=== PATIENT | female | born 1995 | race Caucasian/White ===

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

== ENCOUNTER 2017-11-04 00:33 | Emergency (ER) | payer BC ==
[2017-11-04 01:36] LABS: ABS Basophils 0.1 10^3/ul (0-0.2); ABS Eosinophils 0.1 10^3/ul (0-0.6); ABS Lymphocytes 3.1 10^3/ul (1.0-4.8); ABS Neutrophils 6.3 10^3/ul (1.5-7.7); ABS Nucleated RBC 0 10^3/ul; Eosinophil % 1.2 % (0-6); Hematocrit 36 % (35-47); Hemoglobin 12.1 g/dl (12.0-16.0); Lymphocyte % 29.2 % (25-47); Mean Corpuscular HGB Conc 34 g/dl (31-36); Mean Corpuscular Hemoglobin 26 pg (27-31); Mean Corpuscular Volume 77 fL (80-97); Mean Platelet Volume 7 um3 (7.4-10.4); Nucleated Red Blood Cells % 0.1; Platelet Count 353 10^3/ul (150-450); Red Blood Count 4.69 10^6/ul (4.0-5.4); Red Cell Distribution Width 16 % (10.5-15); White Blood Count 10.5 10^3/ul (3.5-10.8)
[2017-11-04 01:52] LABS: EGFR Non-African American 108.5 (>60)
--- NOTE | 2017-11-04 06:06 | ED ---
Christel Chan Gabriel, scribed for Jeff Becker MD on 11/04/17 at 0520 . Abdominal Pain/Female - HPI Summary HPI Summary: This patient is a 22 year old F presenting to [facility] with a chief complaint of ABD pain that began a month ago but was worse since last night. The patient rates the pain 7/10 in severity. Patient reports blood on wiping and black kadeem in her stool. When she was 14 she had ABD pain due ovarian cysts in February of 2017 the pain was getting worse. Laparoscopic surgery and nothing significant was found. - History of Current Complaint Chief Complaint: EDAbdPain Stated Complaint: ABD PAIN, VAGINAL BLEEDING Time Seen by Provider: 11/04/17 05:11 Hx Obtained From: Patient Onset/Duration: Lasting Weeks - 4, Still Present Timing: Constant Severity Initially: Mild Severity Currently: Severe Pain Intensity: 10 Pain Scale Used: 0-10 Numeric Location: Diffuse Associated Signs and Symptoms: Positive: Blood in Stool, Other: - black kadeem in her stool Allergies/Adverse Reactions: Allergies Allergy/AdvReac Type Severity Reaction Status Date / Time cefpodoxime [From Vantin] Allergy Anaphylatic Verified 11/04/17 00:44 Shock PMH/Surg Hx/FS Hx/Imm Hx Endocrine/Hematology History: Denies: Hx Blood Disorders Respiratory History: Denies: Hx Chronic Obstructive Pulmonary Disease (COPD) GI History: Reports: Hx Gastroesophageal Reflux Disease Sensory History: Denies: Hx Cataracts, Hx Contacts or Glasses Psychiatric History: Reports: Hx Anxiety Infectious Disease History: No Infectious Disease History: Denies: Traveled Outside the [place] in Last 30 Days - Family History Known Family History: Negative: Renal Disease, Seizure Disorder - Social History Occupation: Student Lives: Dormitory/Roommates Alcohol Use: Rare Substance Use Type: Reports: None Smoking Status (MU): Never Smoked Tobacco Review of Systems Negative: Fever Positive: Abdominal Pain, Other - blood on wiping and black kadeem in her All Other Systems Reviewed And Are Negative: Yes Physical Exam - Summary Physical Exam Summary: VITAL SIGNS: Reviewed. GENERAL: Patient is a well-developed and nourished female who is lying comfortable in the stretcher. Patient is not in any acute respiratory distress. HEAD AND FACE: No signs of trauma. No ecchymosis, hematomas or skull depressions. No sinus tenderness. EYES: PERRLA, EOMI x 2, No injected conjunctiva, no nystagmus. EARS: Hearing grossly intact. Ear canals and tympanic membranes are within normal limits. MOUTH: Oropharynx within normal limits. NECK: Supple, trachea is midline, no adenopathy, no JVD, no carotid bruit, no c- spine tenderness, neck with full ROM. CHEST: Symmetric, no tenderness at palpation LUNGS: Clear to auscultation bilaterally. No wheezing or crackles. CVS: Regular rate and rhythm, S1 and S2 present, no murmurs or gallops appreciated. ABDOMEN: Soft, non-tender. No signs of distention. No rebound no guarding, and no masses palpated. Bowel sounds are normal. EXTREMITIES: FROM in all major joints, no edema, no cyanosis or clubbing. NEURO: Alert and oriented x 3. No acute neurological deficits. Speech is normal and follows commands. SKIN: Dry and warm Rectal: normal, no masses, empty rectum Triage Information Reviewed: Yes Vital Signs On Initial Exam: Initial Vitals Temp Pulse Resp BP Pulse Ox 97.3 F 89 16 123/73 98 11/04/17 00:40 11/04/17 00:40 11/04/17 00:40 11/04/17 00:40 11/04/17 00:40 Vital Signs Reviewed: Yes Diagnostics - Vital Signs Vital Signs Temp Pulse Resp BP Pulse Ox 11/04/17 02:40 97.9 F 79 16 129/80 99 11/04/17 00:40 97.3 F 89 16 123/73 98 - Laboratory Lab Results: Lab Results 11/04/17 11/04/17 Range/Units 01:22 01:22 WBC 10.5 (3.5-10.8) 10^3/ul RBC 4.69 (4.0-5.4) 10^6/ul Hgb 12.1 (12.0-16.0) g/dl Hct 36 (35-47) % MCV 77 L (80-97) fL MCH 26 L (27-31) pg MCHC 34 (31-36) g/dl RDW 16 H (10.5-15) % Plt Count 353 (150-450) 10^3/ul MPV 7 L (7.4-10.4) um3 Neut % (Auto) 59.3 (38-83) % Lymph % (Auto) 29.2 (25-47) % [place] % (Auto) 9.8 H (0-7) % Eos % (Auto) 1.2 (0-6) % Baso % (Auto) 0.5 (0-2) % Absolute Neuts (auto) 6.3 (1.5-7.7) 10^3/ul Absolute Lymphs (auto) 3.1 (1.0-4.8) 10^3/ul Absolute Monos (auto) 1.0 H (0-0.8) 10^3/ul Absolute Eos (auto) 0.1 (0-0.6) 10^3/ul Absolute Basos (auto) 0.1 (0-0.2) 10^3/ul Absolute Nucleated RBC 0 10^3/ul Nucleated RBC % 0.1 Sodium 135 (133-145) mmol/L Potassium 3.9 (3.5-5.0) mmol/L Chloride 103 (101-111) mmol/L Carbon Dioxide 25 (22-32) mmol/L Anion Gap 7 (2-11) mmol/L BUN 10 (6-24) mg/dL Creatinine 0.69 (0.51-0.95) mg/dL Est GFR ( Amer) 139.5 (>60) Est GFR (Non-Af Amer) 108.5 (>60) BUN/Creatinine Ratio 14.5 (8-20) Glucose 99 (70-100) mg/dL Calcium 9.5 (8.6-10.3) mg/dL Total Bilirubin 0.20 (0.2-1.0) mg/dL AST 18 (13-39) U/L ALT 11 (7-52) U/L Alkaline Phosphatase 56 (34-104) U/L C-Reactive Protein 5.73 H (< 5.00) mg/L Total Protein 7.5 (6.4-8.9) g/dL Albumin 4.2 (3.2-5.2) g/dL Globulin 3.3 (2-4) g/dL Albumin/Globulin Ratio 1.3 (1-3) Lipase 42 (11.0-82.0) U/L Result Diagrams: 11/04/17 01:22 11/04/17 01:22 Lab Statement: Any lab studies that have been ordered have been reviewed, and results considered in the medical decision making process. Abdominal Pain Fem Course/Dx - Course Course Of Treatment: This patient is a 22 year old F presenting to [facility] with a chief complaint of ABD pain that began a month ago but was worse since last night. The patient rates the pain 7/10 in severity. Patient reports blood on wiping and black kadeem in her stool. When she was 14 she had ABD pain due ovarian cysts in February of 2017 the pain was getting worse. Laparoscopic surgery and nothing significant was found. Pt denied pain medication. Test results with no significant abnormalities. Dx ABD pain. Patient will be discharged and follow up from GI. The patient is agreeable with this plan. - Diagnoses Provider Diagnoses: Abdominal pain Discharge - Discharge Plan Condition: Stable Disposition: HOME Patient Education Materials: Acute Abdominal Pain (ED) Referrals: Jadon Dominguez MD [Medical Doctor] - 4 Days Melly Anderson MD [Primary Care Provider] - Additional Instructions: RETURN TO EMERGENCY DEPARTMENT FOR ANY NEW OR WORSENING SYMPTOMS The documentation as recorded by the Christel cormier Gabriel accurately reflects the service I personally performed and the decisions made by , Jeff Becker MD.
[2017-11-04 06:37] VITALS: BP 113/67
== END 2017-11-04 06:46 | disposition home or self-care (01) ==
LOC: ED 00:33
DX: R10.9 Unspecified abdominal pain (principal); K92.1 Melena
CPT/HCPCS: 36415; 80053; 83690; 85025; 86140; 99282

== ENCOUNTER 2017-11-04 08:04 | Emergency (ER) | payer BC ==
[2017-11-04] MEDS ORDERED: Ketorolac INJ* 30 MG/ML 1 ML VIAL IM ONE (08:29)
[2017-11-04 09:52] VITALS: BP 109/67
[2017-11-04 10:21] LABS: Urine Appearance Clear; Urine Blood 1+ (Negative); Urine Color Yellow; Urine Ketones Negative (Negative); Urine Protein Negative (Negative); Urine Specific Gravity 1.008 (1.010-1.030); Urine Urobilinogen Negative (Negative)
--- NOTE | 2017-11-05 00:24 | ED ---
Nemesio Chan Stephanie, scribed for Tonya Mcgrath MD on 11/04/17 at 0831 . GI/ HPI - HPI Summary HPI Summary: The pt is a 22 y/o F presenting to the ED with c/o rectal bleeding that began at 22:00 yesterday. Symptoms include LLQ abd pain, nausea and dark blood in stool. The pt states her pain is rated as a 6 to a 7 in severity. She was a pt in the ED yesterday. The pt denies receiving pain medications last night while in the ER. Per the pts mother, the pt has been dealing with abd pain for years. She has had laparoscopic surgery in September 2017 in an attempt to diagnose the pt with endometriosis however, no endometriosis was found. The pt states she had her most recent BM at 22:30 yesterday. She states the stool was mostly brown but had dark black spots. She states when she wiped, she saw bright red blood on the toilet paper. LKMP in May 2017 but this is not unusual because OCP's are suppressing her menses. Pt is on continuous control. The pt states a hx of ovarian cysts. Per the pts mother, the pts pain has usually been located at the mid-abdomen and RLQ however, today the pain is at the LLQ which is unusual for the pt. No fever, no vomiting, no urinary symptoms. Mother has irritable bowel syndrome. - History of Current Complaint Time Seen by Provider: 11/04/17 08:26 Stated Complaint: ABD PAIN Hx Obtained From: Patient, Family/Brake Adjuster - Mother Onset/Duration: Started Days Ago - 1, Still Present Timing: Constant, Intermittent - Pain has been intermittent for the past few years, Lasting Hours Severity: Severe Current Severity: Moderate Pain Intensity: 7 Location of Pain: LLQ Pain Characteristics: Dull Pain Radiates to: Back Associated Signs and Symptoms: Positive: Nausea, Rectal Pain, Bright Red Blood w /Stool, Blood w/Stool, Abdominal Pain Additional Signs & Symptoms: Positive: Oral Contraceptives Compliant, First Day of Last Menstral Period - May 2017 Aggravating Factor(s): Nothing Alleviating Factor(s): Nothing - Allergy/Home Medications Allergies/Adverse Reactions: Allergies Allergy/AdvReac Type Severity Reaction Status Date / Time cefpodoxime [From Vantin] Allergy Anaphylatic Verified 11/04/17 08:16 Shock Home Medications: Home Medications Citalopram Hydrobromide [Citalopram HBr] 1.5 tab PO DAILY 11/04/17 [History Confirmed 11/04/17] Lansoprazole [Goodsense Lansoprazole] 15 mg PO BID 11/04/17 [History Confirmed 11/04/17] Norethindrone-Ethinyl Estrad [Nortrel 1-35 28 Tablet] 1 tab PO DAILY 11/04/17 [ History Confirmed 11/04/17] Sertraline* [Zoloft*] 1 tab PO DAILY 11/04/17 [History Confirmed 11/04/17] PMH/Surg Hx/FS Hx/Imm Hx Previously Healthy: No Endocrine/Hematology History: Reports: Other Endocrine/Hematological Disorders - poss endometriosis, although not on laparoscopy Sep 2017 Denies: Hx Blood Disorders Respiratory History: Denies: Hx Chronic Obstructive Pulmonary Disease (COPD) GI History: Reports: Hx Gastroesophageal Reflux Disease Sensory History: Denies: Hx Cataracts, Hx Contacts or Glasses Opthamlomology History: Denies: Hx Cataracts, Hx Contacts or Glasses Psychiatric History: Reports: Hx Anxiety - Surgical History Surgery Procedure, Year, and Place: Laproscopic surgery 09/2017 Infectious Disease History: No Infectious Disease History: Denies: Traveled Outside the [place] in Last 30 Days - Family History Known Family History: Positive: Other - IBS Negative: Renal Disease, Seizure Disorder - Social History Occupation: Student - [employer] major Lives: Dormitory/Roommates Alcohol Use: Rare Substance Use Type: Reports: None Smoking Status (MU): Never Smoked Tobacco Review of Systems Negative: Fever Positive: Abdominal Pain, Nausea Positive: no symptoms reported, other - dark red blood in stool, bright blood on toilet paper, rectal pain Skin: Negative Neurological: Negative Psychological: Normal All Other Systems Reviewed And Are Negative: Yes Physical Exam - Summary Physical Exam Summary: Appearance: Ill-appearing, moderate pain distress, Well-nourished Skin: Warm, color reflects adequate perfusion Head: Normal Head/Face inspection Eyes: Conjunctiva clear ENT: Normal inspection Neck: Supple, no nodes, no JVD. Respiratory: Lungs clear, Normal breath sounds, no respiratory distress Cardio: RRR, No murmur, pulses normal, brisk capillary refill Abdomen: Minimal L periumbilical and LLQ tenderness, no guarding, no rebound Bowel sounds: present Rectal exam with mother present as witness: no fissures or fistulas, no hemorrhoids, nontender exam, only mucous in the rectal vault, guaiac neg when tested. No masses. Musculoskeletal: Strength Intact/ ROM intact. No calf tenderness. No edema. Neuro: Alert, muscle tone normal, facial symmetry, speech normal, sensory/motor intact Psychological: Normal Triage Information Reviewed: Yes Vital Signs On Initial Exam: Initial Vitals Temp Pulse Resp BP Pulse Ox 98.9 F 81 14 127/77 99 11/04/17 08:11 11/04/17 08:11 11/04/17 08:11 11/04/17 08:11 11/04/17 08:11 Vital Signs Reviewed: Yes Diagnostics - Vital Signs Vital Signs Temp Pulse Resp BP Pulse Ox 11/04/17 08:11 98.9 F 81 14 127/77 99 - Laboratory Lab Results: Lab Results 11/04/17 Range/Units 10:08 Urine Color Yellow Urine Appearance Clear Urine pH 6.0 (5-9) Ur Specific Scalf 1.008 L (1.010-1.030) Urine Protein Negative (Negative) Urine Ketones Negative (Negative) Urine Blood 1+ A (Negative) Urine Nitrate Negative (Negative) Urine Bilirubin Negative (Negative) Urine Urobilinogen Negative (Negative) Ur Leukocyte Esterase Trace A (Negative) Urine WBC (Auto) Trace(0-5/hpf) (Absent) Urine RBC (Auto) Trace(0-2/hpf) (Absent) Ur Squamous Epith Cells Present A (Absent) Urine Bacteria 1+ A (Absent) Urine Glucose Negative (Negative) Lab Statement: Any lab studies that have been ordered have been reviewed, and results considered in the medical decision making process. Re-Evaluation - Re-Evaluation First Eval Re-Evaluation Time: 11:00 Change: Improved Comment: reports pain relief with ketorolac. Stool is guaiac neg. Discussed results and diff dx. Decided no imaging needed at this time as pain is controlled and pain is not as low as ovarian cyst pain would be, so doubt associated ovarian pathology. GIGU Course/Dx - Course Course Of Treatment: The pt was given ketorolac 30 mg injectable at 08:36. Her pain has resolved since receiving ketorolac. Stool is guaiac neg. Urine shows possible UTI, but pt has no urinary symptoms, so will not treat at this time, will await culture. No imaging done, decided with shared decision making with pt and mother and myself. Pt will be given Rx for Levsin (hyoscyamine 0.125mg) that she may try sublingual for abd pain that may be due to spasm. Pt is given Dr. Dominguez's name for GI follow up, as soon as the office can accommodate her. Pt will continue her omeprazole. - Diagnoses Differential Diagnoses - Female: Bowel Obstruction, Endometriosis, Gastroenteritis (Viral), Gastroenteritis (Bacterial), Hemorrhoids, Irritable Bowel Syndrome, Peptic Ulcer Disease, Rectal Fissure, Ulcerative Colitis/Crohn' s Disease Provider Diagnoses: Abdominal pain, Bright red blood per rectum Discharge - Discharge Plan Condition: Stable Disposition: HOME Prescriptions: Hyoscyamine Sulfate [Levsin-Sl] 0.125 mg SL Q4H PRN #12 tab.subl PRN Reason: cramping Patient Education Materials: Abdominal Pain (ED) Forms: *School Release Referrals: Jadon Dominguez MD [Medical Doctor] - As Soon As Possible Justin BERMUDEZ,Melly Santana [Primary Care Provider] - 3 Days Additional Instructions: You were given ketorolac 30 mg injectable at 08:36 with good relief of your pain. Dr. Mcgrath is trying a prescription of hyoscyamine 0.125mg sublingual for your abd pain. Please call Dr. Dominguez's office for a GI referral as soon as possible. Follow up with [facility] as well as needed. RETURN TO THE ER FOR ANY NEW OR WORSENING SYMPTOMS The documentation as recorded by the Nemesio cormier Stephanie accurately reflects the service I personally performed and the decisions made by me, Tonya Mcgrath MD.
== END 2017-11-04 11:13 | disposition home or self-care (01) ==
LOC: ED 08:04
DX: R10.32 Left lower quadrant pain (principal); K62.5 Hemorrhage of anus and rectum; R11.0 Nausea; K62.89 Other specified diseases of anus and rectum
CPT/HCPCS: 81003; 81015; 82272; 87086; 99282; J1885

== ENCOUNTER 2017-11-05 10:41 | Observation (INO) | payer BC ==
[2017-11-05] MEDS ORDERED: Ketorolac INJ* 30 MG/ML 1 ML VIAL IV ONE (11:26)
[2017-11-05] MEDS ORDERED: Pantoprazole IV* 40 MG IV ONE (11:26)
[2017-11-05] MEDS ORDERED: Ondansetron INJ* 2 MG/ML VIAL IV ONE ×3 (11:26→15:14)
[2017-11-05] MEDS ORDERED: NS 0.9% 1000 ML* 1,000 ML BOLUS SCH (11:45)
[2017-11-05 11:46] LABS: ABS Basophils 0.1 10^3/ul (0-0.2); ABS Eosinophils 0.1 10^3/ul (0-0.6); ABS Lymphocytes 1.1 10^3/ul (1.0-4.8); ABS Monocytes 0.8 10^3/ul (0-0.8); ABS Neutrophils 19.2 10^3/ul (1.5-7.7); ABS Nucleated RBC 0 10^3/ul; Eosinophil % 0.4 % (0-6); Hematocrit 38 % (35-47); Hemoglobin 12.6 g/dl (12.0-16.0); Lymphocyte % 5.2 % (25-47); Mean Corpuscular HGB Conc 33 g/dl (31-36); Mean Corpuscular Hemoglobin 26 pg (27-31); Mean Corpuscular Volume 78 fL (80-97); Mean Platelet Volume 8 um3 (7.4-10.4); Nucleated Red Blood Cells % 0; Platelet Count 351 10^3/ul (150-450); Red Blood Count 4.94 10^6/ul (4.0-5.4); Red Cell Distribution Width 17 % (10.5-15); White Blood Count 21.3 10^3/ul (3.5-10.8)
[2017-11-05 11:54] LABS: INR 0.82 (0.77-1.02)
[2017-11-05 12:05] LABS: EGFR Non-African American 98.5 (>60)
[2017-11-05] MEDS ORDERED: Potassium Chlor TAB* 20 MEQ TAB.ER PO ONE (12:19)
--- NOTE | 2017-11-05 12:47 | RAD ---
Indication: Right upper quadrant pain. Real-time sonography of the right upper quadrant was performed. The liver measures 16.5 cm in length with no focal lesions or intrahepatic ductal location. The gallbladder demonstrates no calcified gallstones. No pericholecystic fluid or wall thickening is identified. The common duct measures up to 3 mm. Right kidney measures 11.7 x 3.7 x 5.0 cm with no evidence of stenosis. The pancreas head, neck and proximal body demonstrates no mass or pancreatic duct dilatation. Aorta and inferior cava are unremarkable. IMPRESSION: No evidence of cholelithiasis or biliary duct dilatation is present.
[2017-11-05] MEDS ORDERED: Hyoscyamine TAB* 0.125 MG PO PRN (12:51)
[2017-11-05] MEDS ORDERED: Ondansetron INJ* 2 MG/ML VIAL IV PRN (12:57)
[2017-11-05] MEDS ORDERED: Acetaminophen TAB* 325 MG PO PRN (13:36)
[2017-11-05] MEDS: Citalopram TAB* 10 MG PO SCH (14:55)
[2017-11-05] MEDS: Sertraline* 100 MG TAB PO SCH (14:55)
[2017-11-05] MEDS ORDERED: oxyCODONE TAB* 5 MG TAB PO PRN (15:09)
[2017-11-05] MEDS ORDERED: Morphine INJ* 2 MG/ML 1 ML CARPUJECT IV PRN (15:14)
[2017-11-05] MEDS ORDERED: Morphine INJ* 2 MG/ML 1 ML CARPUJECT ONE (15:17)
[2017-11-05] MEDS ORDERED: Ketorolac INJ* 30 MG/ML 1 ML VIAL IV PUSH PRN (16:00)
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
[2017-11-05] MEDS ORDERED: PROCHLORPERAZINE INJ 5 MG/ML 2 ML VIAL ONE (16:27)
[2017-11-05] MEDS ORDERED: PROCHLORPERAZINE INJ 5 MG/ML 2 ML VIAL IV PRN (16:28)
[2017-11-05] MEDS ORDERED: HYDROmorphone INJ* 2 MG/ML CARPUJECT SYRINGE IV SLOW PU PRN (16:53)
[2017-11-05] MEDS: NORETHINDRONE ETHINYL ESTRAD PO SCH ×2 (17:07→19:37)
--- NOTE | 2017-11-05 17:26 | RAD ---
Indication: Abdominal pain, nausea, vomiting. Elevated white blood cell count. Comparison: No relevant prior exams available on the [facility] [place]. Technique: Ultrasound of the right lower quadrant. REPORT AND IMPRESSION: Nondiagnostic exam due to nonvisualization of the appendix. No visualized RIGHT lower quadrant free fluid or lymphadenopathy. Correlate with clinical assessment and consider CT for further evaluation if deemed appropriate.
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
[2017-11-05] MEDS ORDERED: Metoclopramide IV* 5 MG/ML 2 ML VIAL IV PRN (18:53)
[2017-11-05] MEDS ORDERED: NS 0.9% 1000 ML* 1,000 ML IV SCH (19:00)
--- NOTE | 2017-11-05 19:07 | RAD ---
Indication: Assess for ovarian torsion or cyst. Comparison: August 17, 2011 Technique: Transvaginal pelvic ultrasound. Report: Physiologic small volume of free fluid in the cul-de-sac. Unremarkable 7.3 x 3.1 x 4.6 cm anteverted uterus with 4.2 mm endometrium. 2.2 x 1.4 x 1.3 cm RIGHT ovary with documented vascular flow is remarkable for small follicles only. 2.4 x 2.2 x 1.2 cm LEFT ovary with documented vascular flow is remarkable for small follicles only. No visualized extra ovarian adnexal region lesions evident. IMPRESSION: Negative pelvic ultrasound.
--- NOTE | 2017-11-05 20:29 | ED ---
Gloria Chan Nilda, scribed for Tonya Mcgrath MD on 11/05/17 at 1116 . GI/ HPI - HPI Summary HPI Summary: This patient is a 22 year old F BIBA with a chief complaint of waking up today with constant abd pain (mildly epigastric but mostly RUQ) with N/V/D. She denies presence of bright red blood in emesis and stool, but notes V/D were very dark brown. The patient rates the sharp RUQ pain 8/10 in severity. Symptoms aggravated by palpation and alleviated by nothing. Patient reports diaphoresis while vomiting, but denies abnormal vaginal discharge, dysuria, abnormal urinary symptoms, CP, and SOB. Yesterday (11/04/17), pt was seen at [facility] and [facility] (twice) for diffuse abd pain and diarrhea with blood. She was treated with IV Toradol in ED, which resolved her pain. She did not receive CT or ultrasound imaging. She was prescribed hyoscyamine for possible irritable bowel, which she filled, but did not try yet. She states the pain is different today since she is now experiencing R- sided abd pain with vomiting. She states her last meal was yesterday's lunch which was soup and a sandwich. She states she slept almost all day and all night yesterday after being discharged from the ED. The patient notes she takes OTC ibuprofen occasionally for headache and cramping. Daily medications include Lansoprazole 10 mg, Citalopram 10 mg, Nortrel (continuous bcp) 1 tablet, Sertaline HCL 100mg, and Hyoscyamine 0.125 mg ODT. LNMP was in May since menstrual cycle is being intentionally suppressed due to pts Hx of ovarian cysts and possible endometriosis. PSHx includes upper endoscopy performed by Dr. Kim for suspicion of Crohns Disease, which was unremarkable. On 09/10/17 pt states she had laporoscopic surgery performed by Dr. Taniya Shepherd at [facility], which was positive for pelvic adhesions but negative for abnormal appendix, abnormal gallbladder, and endometriosis. - History of Current Complaint Chief Complaint: EDAbdPain Stated Complaint: N/V Hx Obtained From: Patient, Medical Records, Other: - I was pt's provider yesterday for her second ED visit. Onset/Duration: Started Days Ago - 1 day, Atraumatic, Still Present Timing: Constant Severity: Severe Current Severity: Severe Pain Intensity: 8 Location of Pain: RUQ, RLQ, Epigastric Pain Characteristics: Sharp - RUQ Associated Signs and Symptoms: Positive: Nausea, Vomiting - brown, this am, Blood w/Stool - yesterday "black spots" and BRB with wiping, Diarrhea - started this am, Diaphoresis - after vomiting this am, Abdominal Pain, Other: - N/V/D, diaphoresis while vomiting; negative abnormal vaginal discharge, dysuria, abnormal urinary symptoms, CP, SOB. Negative: Hematemesis, Rectal Pain, External Hemorrhoid, Constipation, External Hemorrhoids, Fever, Hematuria, Dysuria, Chills, UTI Symptoms Additional Signs & Symptoms: Positive: Oral Contraceptives Compliant - continuous for menstrual suppression. Negative: Vaginal Bleeding, Vaginal Discharge Aggravating Factor(s): Palpation Alleviating Factor(s): Nothing - Allergy/Home Medications Allergies/Adverse Reactions: Allergies Allergy/AdvReac Type Severity Reaction Status Date / Time cefpodoxime [From Vantin] Allergy Anaphylatic Verified 11/04/17 08:16 Shock Home Medications: Home Medications Citalopram TAB* [CeleXA TAB*] 15 mg PO DAILY 11/05/17 [History Confirmed ] Hyoscyamine TAB* [Anaspaz 0.125 MG TAB*] 0.125 mg PO Q4HR PRN 11/05/17 [History Confirmed 11/05/17] Lansoprazole CAP (NF) [Prevacid CAP (NF)] 15 mg PO BID 11/05/17 [History Confirmed 11/05/17] Sertraline* [Zoloft*] 100 mg PO DAILY 11/05/17 [History Confirmed 11/05/17] PMH/Surg Hx/FS Hx/Imm Hx Endocrine/Hematology History: Reports: Other Endocrine/Hematological Disorders - poss endometriosis, although not on laparoscopy Sep 2017 Denies: Hx Blood Disorders Respiratory History: Reports: Hx Asthma - exercise induced Denies: Hx Chronic Obstructive Pulmonary Disease (COPD) GI History: Reports: Hx Gastroesophageal Reflux Disease Sensory History: Denies: Hx Cataracts, Hx Contacts or Glasses Opthamlomology History: Denies: Hx Cataracts, Hx Contacts or Glasses Psychiatric History: Reports: Hx Anxiety - Surgical History Surgery Procedure, Year, and Place: Laproscopic surgery 09/10/2017 [facility] by Dr. Taniya Shepherd. Tonsil surgery pre school. 10 y.o ear surgery (hole in ear). Thumb surgery for trigger finger. upper endoscopy, Dr. Kim Infectious Disease History: No Infectious Disease History: Denies: Traveled Outside the [place] in Last 30 Days - Family History Known Family History: Positive: Respiratory Disease - exercise induced asthma ( mother), Other - irritable bowel syndrome (mother) Negative: Renal Disease, Seizure Disorder - Social History Occupation: Student - [employer] Lives: Dormitory/Roommates Alcohol Use: None Substance Use Type: Reports: None Smoking Status (MU): Never Smoked Tobacco Review of Systems Positive: Skin Diaphoresis Negative: Chest Pain Negative: Shortness Of Breath Positive: Abdominal Pain, Vomiting, Diarrhea, Nausea Positive: other - negative abnormal urinary symptoms. Negative: dysuria, discharge, hematuria Skin: Negative Neurological: Negative Psychological: Normal All Other Systems Reviewed And Are Negative: Yes Physical Exam - Summary Physical Exam Summary: Appearance: Young female with moderate abd pain, Well-nourished Skin: Warm, color reflects adequate perfusion Head: Normal Head/Face inspection Eyes: Conjunctiva clear ENT: Normal inspection Neck: Supple, no nodes, no JVD. Respiratory: Lungs clear, Normal breath sounds, no respiratory distress Cardio: RRR, No murmur, pulses normal, brisk capillary refill Abdomen: soft, moderate RUQ tenderness, minimal tenderness in RLQ, no guarding, no rebound, no organomegaly, no masses, epigastric tenderness only on palpation Bowel sounds: present Musculoskeletal: Strength Intact/ ROM intact. No calf tenderness. No edema. Neuro: Alert, muscle tone normal, facial symmetry, speech normal, sensory/motor intact Psychological: Normal Triage Information Reviewed: Yes Vital Signs On Initial Exam: Initial Vitals Temp Pulse Resp BP Pulse Ox 98.2 F 94 18 99/79 98 11/05/17 10:59 11/05/17 10:59 11/05/17 10:59 11/05/17 10:59 11/05/17 10:59 Vital Signs Reviewed: Yes Diagnostics - Vital Signs Vital Signs Temp Pulse Resp BP Pulse Ox 11/05/17 10:59 98.2 F 94 18 99/79 98 - Laboratory Lab Results: Lab Results 11/05/17 11/05/17 11/05/17 Range/Units 10:56 10:56 10:56 WBC 21.3 H (3.5-10.8) 10^3/ul RBC 4.94 (4.0-5.4) 10^6/ul Hgb 12.6 (12.0-16.0) g/dl Hct 38 (35-47) % MCV 78 L (80-97) fL MCH 26 L (27-31) pg MCHC 33 (31-36) g/dl RDW 17 H (10.5-15) % Plt Count 351 (150-450) 10^3/ul MPV 8 (7.4-10.4) um3 Neut % (Auto) 90.1 H (38-83) % Lymph % (Auto) 5.2 L (25-47) % [place] % (Auto) 3.8 (0-7) % Eos % (Auto) 0.4 (0-6) % Baso % (Auto) 0.5 (0-2) % Absolute Neuts (auto) 19.2 H (1.5-7.7) 10^3/ul Absolute Lymphs (auto) 1.1 (1.0-4.8) 10^3/ul Absolute Monos (auto) 0.8 (0-0.8) 10^3/ul Absolute Eos (auto) 0.1 (0-0.6) 10^3/ul Absolute Basos (auto) 0.1 (0-0.2) 10^3/ul Absolute Nucleated RBC 0 10^3/ul Nucleated RBC % 0 INR (Anticoag Therapy) (0.77-1.02) Sodium 136 (133-145) mmol/L Potassium 3.4 L (3.5-5.0) mmol/L Chloride 104 (101-111) mmol/L Carbon Dioxide 23 (22-32) mmol/L Anion Gap 9 (2-11) mmol/L BUN 12 (6-24) mg/dL Creatinine 0.75 (0.51-0.95) mg/dL Est GFR ( Amer) 126.7 (>60) Est GFR (Non-Af Amer) 98.5 (>60) BUN/Creatinine Ratio 16.0 (8-20) Glucose 110 H (70-100) mg/dL Lactic Acid 1.0 (0.5-2.0) mmol/L Calcium 9.3 (8.6-10.3) mg/dL Magnesium 1.7 L (1.9-2.7) mg/dL Total Bilirubin 0.50 (0.2-1.0) mg/dL AST 19 (13-39) U/L ALT 11 (7-52) U/L Alkaline Phosphatase 56 (34-104) U/L C-Reactive Protein 5.85 H (< 5.00) mg/L Total Protein 7.7 (6.4-8.9) g/dL Albumin 4.2 (3.2-5.2) g/dL Globulin 3.5 (2-4) g/dL Albumin/Globulin Ratio 1.2 (1-3) Amylase 44 (29-103) U/L Lipase 32 (11.0-82.0) U/L Beta HCG, Quant < 0.60 mIU/mL 11/05/17 Range/Units 10:56 WBC (3.5-10.8) 10^3/ul RBC (4.0-5.4) 10^6/ul Hgb (12.0-16.0) g/dl Hct (35-47) % MCV (80-97) fL MCH (27-31) pg MCHC (31-36) g/dl RDW (10.5-15) % Plt Count (150-450) 10^3/ul MPV (7.4-10.4) um3 Neut % (Auto) (38-83) % Lymph % (Auto) (25-47) % [place] % (Auto) (0-7) % Eos % (Auto) (0-6) % Baso % (Auto) (0-2) % Absolute Neuts (auto) (1.5-7.7) 10^3/ul Absolute Lymphs (auto) (1.0-4.8) 10^3/ul Absolute Monos (auto) (0-0.8) 10^3/ul Absolute Eos (auto) (0-0.6) 10^3/ul Absolute Basos (auto) (0-0.2) 10^3/ul Absolute Nucleated RBC 10^3/ul Nucleated RBC % INR (Anticoag Therapy) 0.82 (0.77-1.02) Sodium (133-145) mmol/L Potassium (3.5-5.0) mmol/L Chloride (101-111) mmol/L Carbon Dioxide (22-32) mmol/L Anion Gap (2-11) mmol/L BUN (6-24) mg/dL Creatinine (0.51-0.95) mg/dL Est GFR ( Amer) (>60) Est GFR (Non-Af Amer) (>60) BUN/Creatinine Ratio (8-20) Glucose (70-100) mg/dL Lactic Acid (0.5-2.0) mmol/L Calcium (8.6-10.3) mg/dL Magnesium (1.9-2.7) mg/dL Total Bilirubin (0.2-1.0) mg/dL AST (13-39) U/L ALT (7-52) U/L Alkaline Phosphatase (34-104) U/L C-Reactive Protein (< 5.00) mg/L Total Protein (6.4-8.9) g/dL Albumin (3.2-5.2) g/dL Globulin (2-4) g/dL Albumin/Globulin Ratio (1-3) Amylase (29-103) U/L Lipase (11.0-82.0) U/L Beta HCG, Quant mIU/mL Result Diagrams: 11/05/17 10:56 11/05/17 10:56 Lab Statement: Any lab studies that have been ordered have been reviewed, and results considered in the medical decision making process. - EKG 1326 Cardiac Rate: NL EKG Rhythm: Sinus Rhythm - [address] Segment: Non-Specific Ectopy: None EKG Interpretation: An EKG at 1326 reveals nml AVIVCT, nml QTc, and nml axis. - Additional Comments Diagnostic Additional Comments: US abd, per radiologist, reveals no evidence of cholelithiasis or biliary duct dilatation is present. Re-Evaluation - Re-Evaluation First Eval Re-Evaluation Time: 12:48 Change: Unchanged Comment: Pt states diarrhea began this morning and watery and yellow. Yesterday , pt had bloody diarrhea. Pain level still 8 but declines further pain medicine. She wants to see if current pain medication will work. Second Eval Re-Evaluation Time: 13:31 Change: Unchanged Comment: Pt rates pain 7/10. She still declines pain meds. Dr. Dominguez will be calling parents about plan for care. GIGU Course/Dx - Course Assessment/Plan: This patient is a 22 year old F BIBA with a chief complaint of constant severe sharp RUQ pain with N/V/D (very dark brown emesis and stool). She was seen in ED yesterday for diffuse abd pain with diarrhea. Pending labs, EKG, and US abd. Labs reveal C. Diff negative, Stool Occult blood negative, and Lactoferrin positive. Wbc is increased today compared with yesterday (21.3 vs 10.5). Hemoglobin is stable. An EKG at 1326 reveals NSR, 78 bpm, nonspecific ST changes, no ectopy, nml AVIVCT, nml QTc, and nml axis. US abd, per radiologist, reveals no evidence of cholelithiasis or biliary duct dilatation is present. [1115] Dr. Dominguez (Gastro) recommends US Abd, and agrees to see pt in ED. [1150] Dr. Casarez (Hospitalist) agrees to admit pt. [ 1348] Nurse notified Dr. Mcgrath that pt is having more nausea and requests more nausea medication. Zofran 4mg IV ordered. Allergies Noted. Pt medication reviewed this visit. Pt is stable and will be admitted to [facility] with a Dx of abd pain. Pt understands and is agreeable with this plan. Pt's parents are enroute from [place], [place] to be with pt. - Diagnoses Differential Diagnoses - Female: Appendicitis, Cholelithiasis, Cholecystitis, Colitis, Dehydration, Diarrhea, Endometriosis, Gall Bladder Disease, Gastroenteritis (Viral), Peptic Ulcer Disease, Peptic Ulcer Disease, Ulcerative Colitis/Crohn's Disease, Vomiting Provider Diagnoses: Abdominal pain - Physician Notifications Discussed Care Of Patient With: Jadon Dominguez - Gastro Time Discussed With Above Provider: 11:15 Instructed by Provider To: MD Will See In ED - and recommends US. Discharge - Discharge Plan Condition: Stable Disposition: ADMITTED TO [facility] documentation as recorded by the Gloria cormier Nilda accurately reflects the service I personally performed and the decisions made by , Tonya Mcgrath MD.
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
[2017-11-06 05:12] LABS: Urine Appearance Clear; Urine Blood Negative (Negative); Urine Color Yellow; Urine Ketones Trace (Negative); Urine Protein 1+(30 mg/dL) (Negative); Urine Specific Gravity 1.034 (1.010-1.030); Urine Urobilinogen Negative (Negative)
[2017-11-06 05:46] LABS: ABS Basophils 0 10^3/ul (0-0.2); ABS Eosinophils 0 10^3/ul (0-0.6); ABS Lymphocytes 0.8 10^3/ul (1.0-4.8); ABS Monocytes 0.6 10^3/ul (0-0.8); ABS Neutrophils 9.4 10^3/ul (1.5-7.7); ABS Nucleated RBC 0 10^3/ul; Eosinophil % 0.2 % (0-6); Hematocrit 34 % (35-47); Hemoglobin 11.4 g/dl (12.0-16.0); Lymphocyte % 7.2 % (25-47); Mean Corpuscular HGB Conc 33 g/dl (31-36); Mean Corpuscular Hemoglobin 26 pg (27-31); Mean Corpuscular Volume 77 fL (80-97); Mean Platelet Volume 8 um3 (7.4-10.4); Nucleated Red Blood Cells % 0; Platelet Count 241 10^3/ul (150-450); Red Blood Count 4.43 10^6/ul (4.0-5.4); Red Cell Distribution Width 17 % (10.5-15); White Blood Count 10.8 10^3/ul (3.5-10.8)
--- NOTE | 2017-11-06 06:57 | PN ---
Progress Note - Progress Note Date of Service: 11/06/17 Note: Surgery Milena Mahoney feels much better. She would like to try more food. Vital Signs 11/05/17 11/05/17 11/05/17 10:57 10:59 11:00 Temperature 98.2 F Pulse Rate 93 94 101 Respiratory 18 18 19 Rate Blood Pressure 99/79 99/79 (mmHg) O2 Sat by Pulse 97 98 97 Oximetry 11/05/17 11/05/17 11/05/17 12:00 12:13 12:18 Temperature Pulse Rate 88 104 99 Respiratory 24 Rate Blood Pressure 104/57 104/67 (mmHg) O2 Sat by Pulse 97 94 98 Oximetry 11/05/17 11/05/17 11/05/17 12:23 12:25 12:31 Temperature Pulse Rate 101 101 89 Respiratory 21 22 Rate Blood Pressure 113/68 113/68 107/65 (mmHg) O2 Sat by Pulse 96 98 Oximetry 11/05/17 11/05/17 11/05/17 13:00 13:10 13:15 Temperature 98.2 F Pulse Rate 102 85 Respiratory 22 20 18 Rate Blood Pressure 106/66 106/66 (mmHg) O2 Sat by Pulse 97 98 Oximetry 11/05/17 11/05/17 11/05/17 13:30 14:00 14:09 Temperature 98.2 F Pulse Rate 84 87 85 Respiratory 20 18 Rate Blood Pressure 106/77 107/65 98/78 (mmHg) O2 Sat by Pulse 99 97 98 Oximetry 11/05/17 11/05/17 11/05/17 15:08 15:20 15:21 Temperature 98.1 F Pulse Rate 85 Respiratory 20 18 18 Rate Blood Pressure 98/78 (mmHg) O2 Sat by Pulse 98 Oximetry 11/05/17 11/05/17 11/05/17 15:46 16:14 16:28 Temperature 97.7 F Pulse Rate 82 Respiratory 16 16 18 Rate Blood Pressure 107/56 (mmHg) O2 Sat by Pulse 99 Oximetry 11/05/17 11/05/17 11/05/17 18:17 19:39 19:59 Temperature 98.1 F Pulse Rate 98 Respiratory 18 16 16 Rate Blood Pressure 106/59 (mmHg) O2 Sat by Pulse 98 Oximetry 11/06/17 11/06/17 00:00 03:35 Temperature 100.3 F 98.1 F Pulse Rate 92 88 Respiratory 20 16 Rate Blood Pressure 101/56 92/51 (mmHg) O2 Sat by Pulse 99 99 Oximetry General: affect is brighter Abd: good BS, soft, non-tender Intake & Output 11/05/17 11/05/17 11/06/17 14:59 22:59 06:59 Intake Total 999 360 340 Output Total 0 150 Balance 999 360 190 Weight 149 lb 149 lb Intake: IV Fluids 999 Oral 360 340 Output: Urine 0 150 Other: Estimated Void Medium Medium # Bowel Movements 0 Laboratory Results - last 24 hr 11/05/17 11/05/17 11/05/17 10:56 10:56 10:56 WBC 21.3 H RBC 4.94 Hgb 12.6 Hct 38 MCV 78 L MCH 26 L MCHC 33 RDW 17 H Plt Count 351 MPV 8 Neut % (Auto) 90.1 H Lymph % (Auto) 5.2 L [place] % (Auto) 3.8 Eos % (Auto) 0.4 Baso % (Auto) 0.5 Absolute Neuts (auto) 19.2 H Absolute Lymphs (auto) 1.1 Absolute Monos (auto) 0.8 Absolute Eos (auto) 0.1 Absolute Basos (auto) 0.1 Absolute Nucleated RBC 0 Nucleated RBC % 0 INR (Anticoag Therapy) Sodium 136 Potassium 3.4 L Chloride 104 Carbon Dioxide 23 Anion Gap 9 BUN 12 Creatinine 0.75 Est GFR ( Amer) 126.7 Est GFR (Non-Af Amer) 98.5 BUN/Creatinine Ratio 16.0 Glucose 110 H Lactic Acid 1.0 Calcium 9.3 Magnesium 1.7 L Total Bilirubin 0.50 AST 19 ALT 11 Alkaline Phosphatase 56 C-Reactive Protein 5.85 H Total Protein 7.7 Albumin 4.2 Globulin 3.5 Albumin/Globulin Ratio 1.2 Amylase 44 Lipase 32 Beta HCG, Quant < 0.60 Urine Color Urine Appearance Urine pH Ur Specific [place] Urine Protein Urine Ketones Urine Blood Urine Nitrate Urine Bilirubin Urine Urobilinogen Ur Leukocyte Esterase Urine WBC (Auto) Urine RBC (Auto) Ur Squamous Epith Cells Urine Bacteria Urine Glucose Urine Ascorbic Acid 11/05/17 11/05/17 11/06/17 10:56 17:47 04:47 WBC 10.8 RBC 4.43 Hgb 11.4 L Hct 34 L MCV 77 L MCH 26 L MCHC 33 RDW 17 H Plt Count 241 MPV 8 Neut % (Auto) 86.9 H Lymph % (Auto) 7.2 L [place] % (Auto) 5.5 Eos % (Auto) 0.2 Baso % (Auto) 0.2 Absolute Neuts (auto) 9.4 H Absolute Lymphs (auto) 0.8 L Absolute Monos (auto) 0.6 Absolute Eos (auto) 0 Absolute Basos (auto) 0 Absolute Nucleated RBC 0 Nucleated RBC % 0 INR (Anticoag Therapy) 0.82 Sodium Potassium Chloride Carbon Dioxide Anion Gap BUN Creatinine Est GFR ( Amer) Est GFR (Non-Af Amer) BUN/Creatinine Ratio Glucose Lactic Acid 1.2 Calcium Magnesium Total Bilirubin AST ALT Alkaline Phosphatase C-Reactive Protein Total Protein Albumin Globulin Albumin/Globulin Ratio Amylase Lipase Beta HCG, Quant Urine Color Urine Appearance Urine pH Ur Specific [place] Urine Protein Urine Ketones Urine Blood Urine Nitrate Urine Bilirubin Urine Urobilinogen Ur Leukocyte Esterase Urine WBC (Auto) Urine RBC (Auto) Ur Squamous Epith Cells Urine Bacteria Urine Glucose Urine Ascorbic Acid 11/06/17 04:49 WBC RBC Hgb Hct MCV MCH MCHC RDW Plt Count MPV Neut % (Auto) Lymph % (Auto) [place] % (Auto) Eos % (Auto) Baso % (Auto) Absolute Neuts (auto) Absolute Lymphs (auto) Absolute Monos (auto) Absolute Eos (auto) Absolute Basos (auto) Absolute Nucleated RBC Nucleated RBC % INR (Anticoag Therapy) Sodium Potassium Chloride Carbon Dioxide Anion Gap BUN Creatinine Est GFR ( Amer) Est GFR (Non-Af Amer) BUN/Creatinine Ratio Glucose Lactic Acid Calcium Magnesium Total Bilirubin AST ALT Alkaline Phosphatase C-Reactive Protein Total Protein Albumin Globulin Albumin/Globulin Ratio Amylase Lipase Beta HCG, Quant Urine Color Yellow Urine Appearance Clear Urine pH 5.0 Ur Specific [place] 1.034 H Urine Protein 1+(30 mg/dl) A Urine Ketones Trace A Urine Blood Negative Urine Nitrate Negative Urine Bilirubin Negative Urine Urobilinogen Negative Ur Leukocyte Esterase Trace A Urine WBC (Auto) Trace(0-5/hpf) Urine RBC (Auto) 2+(6-10/hpf) A Ur Squamous Epith Cells Present A Urine Bacteria Absent Urine Glucose Negative Urine Ascorbic Acid * A A/P: Improving. No surgical indication. Could advance diet.
[2017-11-06] MEDS: Sertraline* 100 MG TAB PO SCH (08:20)
[2017-11-06] MEDS: Citalopram TAB* 10 MG PO SCH (08:21)
[2017-11-06] MEDS ORDERED: Omeprazole CAP* 20 MG PO SCH (09:00)
[2017-11-06 14:01] VITALS: BP 100/55
[2017-11-06] MEDS ORDERED: NORETHINDRONE ETHINYL ESTRAD PO SCH (20:30)
--- NOTE | 2017-11-07 15:59 | DS ---
CC: Dr. Dominguez; Dr. Anderson* DISCHARGE SUMMARY: DATE OF ADMISSION: 11/05/17 DATE OF DISCHARGE: 11/06/17 PRINCIPAL DISCHARGE DIAGNOSES: 1. Irritable bowel syndrome. 2. Gastroenteritis. SECONDARY DISCHARGE DIAGNOSES: 1. Chronic abdominal pain. 2. Depression. 3. Exercise-induced asthma. 4. Gastroesophageal reflux disease. 5. Asperger's syndrome. DISCHARGE MEDICATIONS: 1. Sertraline 100 mg daily. 2. Celexa 50 mg daily. 3. Prevacid 50 mg b.i.d. 4. Nortrel 1 tab daily. 5. Levbid 0.375 mg b.i.d. PHYSICAL EXAMINATION AT THE TIME OF DISCHARGE: Vital Signs: Temperature 98.5, heart rate 89, respiratory rate 16, pulse ox 100% on room air, blood pressure 100/55. General: Alert, young well-appearing female, in no distress. She is pleasant, comfortable and has her parents at the bedside. HEENT: Pupils equal , round, and reactive to light and no mucosal lesions or ulcers. Moist mucosa. Neck: No JVP. No cervical adenopathy. Chest: Regular rate and rhythm. PMI nondisplaced. Lungs: Clear bilaterally. Abdomen: Soft, nontender, nondistended. No guarding, rebound, or rigidity. Liver is nonpalpable. Spleen is nonpalpable. Bowel sounds are normoactive. Extremities: She does have hyperextensible shoulders. No vesicular rashes or skin changes. Strength 5+ throughout. HOSPITAL COURSE BY PROBLEM: 1. IBS versus IBD with superimposed gastroenteritis. Ms. Mahoney has had a longstanding history of chronic abdominal pain for which she has been followed by her PCP, GI, and Gynecology. She has had an exploratory laparoscopy to rule out endometriosis and an upper endoscopy; however, and has not yet had a colonoscopy. Diagnostic imaging on this admission included an appendix ultrasound, which was nondiagnostic due to nonvisualization of the appendix. A gallbladder ultrasound, which showed no evidence of cholelithiasis or biliary duct dilatation and a transvaginal ultrasound, which was negative. Pertinent lab studies during this admission included stool studies, which were negative for C. diff, negative for occult blood, but positive by fecal lactoferrin and at admission she had a leukocytosis to 21,000 which decreased to 10,000 on the day of discharge. She was admitted from the emergency department after presenting there 3 times in 30 hours with abdominal pain, nausea, vomiting, and a large bowel movement. She was evaluated by GI and Surgery. A surgical abdomen was ruled out and GI agreed with a suspected diagnosis of IBS superimposed with some type of gastroenteritis; however, agreed that an IBD that is currently being masked by IBS symptoms should be ruled out and followed longitudinally. I discussed this plan with Milena and her family. Certainly, an underlying process that has caused her chronic abdominal pain is suspected given her elevation of nonspecific inflammatory markers and long history of GI symptoms. However, on the day of discharge, her symptoms were completely resolved with only conservative measures and she agrees to be discharged and follow up closely with Dr. Dominguez. She is being discharged on Levbid and I have discussed this case with Dr. Dominguez. The GI office will call Ms. Mahoney on Wednesday morning with a followup appointment this week with Dr. Dominguez. 2. Anxiety/depression. She will continue on her home doses of sertraline and Celexa. DISPOSITION: Ms. Mahoney was discharged to home on 11/06/17. She is recommended to trial a FODMAP diet and to return to the emergency department should her abdominal pain, nausea, or vomiting return or if she experiences any fevers. She will follow up with GI in 1 week and will try Levbid for 10 days. [id number]/[facility] #: [id number] [facility]ITAL[facility]an[facility]
== END 2017-11-06 14:42 | disposition home or self-care (01) ==
LOC: ED 10:41 → SSU 12:49
PROVIDERS: ADMIT Internal Medicine; ATTEND Internal Medicine
DX: K58.9 Irritable bowel syndrome, unspecified (principal); K52.9 Noninfective gastroenteritis and colitis, unspecified; R10.9 Unspecified abdominal pain; G89.29 Other chronic pain; F32.9 Major depressive disorder, single episode, unspecified; J45.909 Unspecified asthma, uncomplicated; K21.9 Gastro-esophageal reflux disease without esophagitis; F84.5 Asperger's syndrome; Z79.899 Other long term (current) drug therapy
CPT/HCPCS: 36415; 76705; 76830; 80053; 81003; 81015; 82150; 82272; 83605; 83630; 83690; 83735; 84702; 85025; 85610; 86140; 87086; 87493; 93005; 96374; 96375; 96376; 99285; A9270-GY; G0378; J0780; J1885; J2270; J2405

== ENCOUNTER 2019-05-19 18:40 | Emergency (ER) | payer BC ==
[2019-05-19] MEDS ORDERED: Ibuprofen TAB* 400 MG PO ONE (20:40)
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
[2019-05-19] MEDS ORDERED: Hyoscyamine ER (NF) 0.375 MG TAB PO SCH (21:00)
[2019-05-19] MEDS ORDERED: LANSOPRAZOLE 15 MG PO SCH (21:00)
[2019-05-19 21:04] VITALS: BP 112/75
[2019-05-20] MEDS ORDERED: Sertraline* 100 MG TAB PO SCH (09:00)
[2019-05-20] MEDS ORDERED: Citalopram TAB* 10 MG PO SCH (09:00)
== END 2019-05-19 21:03 | disposition home or self-care (01) ==
LOC: ED 18:40
DX: S02.5XXA Fracture of tooth (traumatic), initial encounter for closed fracture (principal); W20.8XXA Other cause of strike by thrown, projected or falling object, initial encounter; Y92.9 Unspecified place or not applicable; D64.9 Anemia, unspecified; K21.9 Gastro-esophageal reflux disease without esophagitis; Z79.899 Other long term (current) drug therapy; Z88.1 Allergy status to other antibiotic agents
CPT/HCPCS: 99282